=== PATIENT | female | born 1955 | race Caucasian/White ===

== ENCOUNTER 2021-12-08 13:46 | Outpatient (RCR) | payer MEDICARE, SELFPAY ==
--- NOTE | 2021-12-08 15:17 | PT.OPEX ---
PT [place] Outpatient Eval PT [facility] Outpatient Eval Start: 12/08/21 12:40 Freq: Status: Active Protocol: Document 12/08/21 12:40 ENM (Rec: 12/08/21 15:07 ENM [id number]) E-signed By Shahnaz Dale DPT Physical Therapy Outpatient Evaluation Insurance Information Recert Due Date 03/02/22 Insurance Name Medicare B Medical Diagnosis trochanteric bursitis right hip Treating Diagnosis right hip pain, impaired gait, decreased right hip strength Referring MD Farrell Subjective Subjective Patient presents to PT for complaint of right hip pain after a fall. Patient states that the fall was really bad about 5 weeks ago. After the fall there was a large amount of swelling and bruising on the side of the hip. Since then pains have steadily improved but has not gone away . Sitting is the worse right now but then after 2-3 steps the pain improves. The front of the hip and the back of the hip are the most painful. Does have a history of ganglion cyst and numbness of the left foot which causes her to be unsteady. She is on an anti-inflammatory for the foot and has a follow up next week . She has not been able to do her walking due to the hip and instead has been using a recumbent bike. She has been doing some stretching that has helped some. Denies any numbness and tingling. Patient cleans houses for a job and bending to do her work used to be painful but that is better now. PMHx: right total hip replacement, B knee replacements, previous achilles tendon tear Imaging: Xray An AP pelvis and cross-table lateral view of the right hip do not show an obvious fracture of the greater trochanter or femur. There is no obvious pelvic ring fracture.. Pain Comments at its best: 2/10 at its worse: 8-9/10 with initially sitting and getting to standing easing: ibuprofen aggravating: sitting, starting to walk Occupation cleaning Objective Other/Pertinent Objective ROM: AROM hip flexion L 95 R 95 with pain on R, pain with PROM flexion hip IR L 21 R 21 hip ER L 28 R 30 Lumbar FF no pain WNL ext no pain WNL SB no pain WNL strength: hip flexors L 4/5 R 3+/5 with pain on R knee extensors L 4/5 R 4-/5 with pain on R hip IR 4/5 B hip ER L 4/5 R 4-/5 with slight pain no reproduction of pain with S /L resisted hip extension or knee flexion palpation/joint mobility: + for pain with palpation to proximal HS at IT and distal medial glute max. No pains with palpation of greater trochanter bursa gait/ambulation: R trunk lean, R hip drop with ambulation. Initial antalgic gait pattern with first 3-4 steps that improves with progressive distance SLS standing on L contralateral hip drop and hip adduction, able to hold 15s bilaterally special tests: SLR - 90/90 HS length slight pain reproduction on R piriformis below 90 just stretch, piriformis above 90 deg slight pain - ER derotation test - for improvement of pain with SIJ compression Functional Test Performed & Score LEFS: 54/64 Assessment Assessment/Impression Patient is a 66 year old female presenting with right hip pain after a fall 5 weeks ago. Their primary complaint is of pain in the back of the hip with sitting and with starting to walk. Pains are not as significant anymore but still limit sit to stand transfers as well as ambulation. Patient was very active with walking prior to injury which has now been limited due to pain. Upon assessment patients concordant pains brought on with hip flexion active and passive, hamstring stretch, first ambulation steps from sitting and palpation of proximal HS at IT/medial glute . Special testing - for SLR, hip ER derotation and SLS. Noted contralateral hip drop with stance on LLE and right trunk lean with ambulation. Some improvement of pain during first steps with cues for glute engagement. Global hip weakness noted with MMT, most significant for hip flexion and knee extension. Symptoms consistent with proximal hamstring strain. Patient would greatly benefit from skilled PT to address impairments stated above in order to be able to perform all functional and recreational walking as well as work duties without significant discomfort or difficulty. Primary Functional Limitations sitting, first steps after sitting Plan of Care Rehabilitation Potential Good Physical Therapy Goals In 5-6 visits: 1. Patient will be IND with HEP and self management of symptoms 2. Patient will be able to sit for > 1 hour without posterior hip pain to demonstrate improvements in sitting tolerance for longer car rides 3. Patient will be able to stand up from sitting and begin ambulation without difficulty for improved ease of transfers 4. Patient will be able to return to prior walking routine with less than 2/10 hip pain to progress toward PLOF Coordination/Communication With Referral Source Treatment Plan/Direct Interventions Gait Training,Ice/Cold/ Vasopneumatic,Joint Mobilization,Manual Therapy, Neuromuscular Re-ed,Self-Care/ Home Management,Therapeutic Activities,Therapeutic Exercises Frequency/Duration 1x a week for 5-6 visits Patient Will Be Discharged From Therapy Completion of LTG(s), Independent w/HEP Evaluation Billing Untimed Code Treatment Minutes 34 Complexity Low Certification Information Initial Certification Date 12/08/21 Ending Certification Date 03/02/22 Provider Signature Shows Agreement With POC & Medical Necessity Physician Signature & Date Requested Please Sign/Date Here Physician Comment/Change : Physician NPI Number #
== END 2022-03-12 14:55 | disposition home or self-care (01) ==
PROVIDERS: PCP Family Medicine; Visit Provider Orthopaedic Surgery
DX: M25.551 Pain in right hip (principal); M70.61 Trochanteric bursitis, right hip; R26.9 Unspecified abnormalities of gait and mobility; Z51.89 Encounter for other specified aftercare
CPT/HCPCS: 97110; 97161

== ENCOUNTER 2024-03-19 04:43 | Emergency (ER) | payer MEDICARE, SELFPAY ==
[2024-03-19 04:45] VITALS: BP 132/77; PULSE 83; RESP 16; TEMP 36.4; O2SAT 97; BMI 27.3
--- OUTSIDE RECORDS SUMMARY | 2024-03-19 04:46 | XMS_ITS | Clinical Summary ---
Author Organization [facility] Address [place], [place] [address] Care Team Providers Care Recovery Coordinator Name Role Phone Rachael Antunez DO Primary Care Provider Allergies Active Allergy Reactions Criticality Noted Date Comments Morphine Itching 05/30/2009 Hydrocodone-Acetaminophen Itching 02/04/2014 Medications cholecalciferol (VITAMIN D) 1,000 unit tablet Take 1 tablet by mouth once daily. 0 4 Active vitamin-folic acid 1 mg ( VITAMIN) tablet/capsule Take 1 tablet by mouth once daily. 0 4 Active amoxicillin (AMOXIL) 500 mg tablet TAKE ALL FOUR TABLETS BY MOUTH ONE HOUR PRIOR TO DENTAL APPOINTMENT 3 9 Active calcium carbonate-vitam in D3, 600 mg-400 unit, 600 mg(1,500mg) -400 unit tablet Take 1 tablet by mouth 2 times daily with meals. 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 016 Neuralgia of left peroneal nerve 12/20/2014 Osteoarthritis of carpometacarpal joints of both thumbs 01/19/2013 Elevated BP without diagnosis of hypertension Resolved Problems Problem Noted Date Diagnosed Date Resolved Date Anticoagulated on warfarin 07/31/2012 0 08/27/2012 Obesity (BMI 30-39.9) 08/09/20112013 Endometrial cancer 05/07/2011 0 longterm (current) use of anticoagulants 06/09/2009 05/07/2011 Overview (06/23/2009): INR Goal Range: 1.8 - 2.5 Dysmetabolic syndrome X 03/31/200705/16 Overview (03/31/2007): waist, HDL and borderline BP Last Lipids: Chol: 180 03/27/2007 T 03/27/2007 HDL: 47 03/27/2007 LDL: 109 03/27/2007 Last BP Readings: Date: BP: 03/27/2007 122/82 Symptomatic menopausal or fe male climacteric states 03/27/2007 06/08/2009 Other joint derangement, not elsewhere classified, lower leg 03/24/2007 06/08/2009 Overview (03/24/2007): right gives out Total Knee, right 07/15/2000 06/08/2009 Overview (03/27/2007): needs Prophylaxis first 2 years, optional after that Loose body in knee 09/14/1986 0 Overview (03/24/2007): left Special screening for osteoporosis 06/08/2009 Overview (03/27/2007): MOm has osteoporosis at age 77 tallest 68.75 Other screening mammogram Overview (03/27/2007): 10/08/[address] density 03/27/2007 to schedule Screening for lipoid disorders 06/08/2009 Overview (03/31/2007): Last Lipids: Chol: 143 01/21/2004 T 01/21/2004 HDL: 41 01/21/2004 LDL: 88 01/21/2004 Last Lipids: Chol: 180 03/27/2007 T 03/27/2007 HDL: 47 03/27/2007 LDL: 109 03/27/2007 Routine gynecological examination 06/08/2009 Overview (03/27/2007): 03/27/2007 Screening for diabetes mellitus 06/08/2009 Overview (03/27/2007): Family History: Mom, diet controled Largest baby 7#rob 03/27/2007 FBS none Screening for malignant neop lasm of the cervix 06/08/2009 Overview (03/27/2007): 02/26/00 ASCUS, favor reactive, several normals since 01/21/04 normal 03/27/2007 Special screening for malign ant neoplasms, colon 06/08/2009 Overview (03/27/2007): no family history. 03/27/2007 discussed screening options Screening for thyroid disorder 06/08/2009 Overview (03/27/2007): TSH (uIU/mL) Date Value 08/08/2002 1.67 Encounters Date Type Department Care Team Description 03/09/[address] [address] Rachael Antunez DO Letter (Patient wondering if she can use weight loss injections.) 02/29/[address] [address] Rachael Antunez, Form 01/30/2024 7:45 AM DIRECTOR OF PUPIL PERSONNEL PROGRAM Office Visit [facility] [address] [place] [address] aRchael Antunez DO Medicare ANNUAL (subsequent) Visit (68 yr/) 01/30/2024 Travel 01/25/2024 Travel 01/23/2024 7:20 AM DIRECTOR OF PUPIL PERSONNEL PROGRAM Ancillary Procedure [facility] [address] [place] [address] 01/23/2024 Travel 01/20/2024 Travel 01/17/2024 2:15 PM DIRECTOR OF PUPIL PERSONNEL PROGRAM Office Visit [facility] [address] [place] [address] Yousif Lamar DPM Follow Up (Left foot pain, review EMG results ) 01/17/2024 Travel 01/10/2024 10:30 AM DIRECTOR OF PUPIL PERSONNEL PROGRAM Office Visit [facility] [address] [place] [address] Harsha Plascencia, Testing (EMG left lower extremity) 01/10/2024 Travel 01/05/2024 Travel from Last 3 Months Immunizations Name Administration Dates Next Due COVID-19 vaccine (Denise-J& J) PF, MDV 04/25/2020 HepA-HepB (Twinrix) 05/08/2012,12/06/2011,2011 Influenza Virus, Unspecified 12/15/2017 Influenza, High-dose Inactivated 12/28/2023,11/15 Influenza, High-dose Quadriv alent Inactivated 12/29/2022,12/19/2021,12/22/2020,2019 Influenza, IIV3 (Age >=3 years) 02/24/2012,11/22 Influenza, IIV4 11/15/2016, 6,12/20/2014,2013 Pneumococcal Conj 20-valent (Prevnar 20) 01/25/2022 Pneumococcal conj 13-Valent (Prevnar 13) 01/08/2019 Pneumococcal, Unspecified 12/15/2017 Td (Age >=7 Years) 02/26/2000,06/10/1989 Tdap 10/21/2021,08/09/2011 Zoster (Shingrix-RZV, recombinant) 09/12,09/12/2018,05/03/2018,2018 Zoster (Zostavax-ZVL, live) 12/20/2014 Family History Medical History Relation Name Comments Good Health Brother Herman Other Brother Herman smoker Asthma Father Hypertension Father Other Father Emphysema/Menie re's disease Diabetes Maternal Aunt Chichi Arthritis Maternal Grandfather rheumat ism Other Maternal Grandfather Diabetes Maternal Grandmother diet co ntrolled Arthritis Mother bilateral knee replascements Asthma Mother Cancer Mother Lung Diabetes Mother No treatment at this time Heart Disease Mother CHF-Hyperchole sterolemia, stents at 79 Hypertension Mother Osteoporosis Mother Other Mother Irregular heart beat/Emphysema Stroke Mother At the time of bilat. total knee replacements at age 76 Thyroid Disease Mother Other Paternal Grandmother Gangren e Other Sister 1 Zahira Shogren's syndr ome Good Health Sister 2 Gladys Good Health Son 1 Alvarez Other Son 2 Andrey Golden Jim sy ndrome, no porblems since out grew tongue issues Cancer-breast No Family History Cancer-colon No Family History Cancer-ovarian No Family History Relation Name Status Comments Brother Herman Alive Father Alive b 1922 Maternal Aunt Chichi Alive Maternal Grandfather (Age 97) ol d age Maternal Grandmother (Age 95) ol d age Mother Alive b 192 Paternal Grandfather (Age 84) o ld age Paternal Grandmother unknown Sister 1 Zahira Alive Sister 2 Gladys Alive Son 1 Alvarez Alive b 1975 Son 2 Andrey Alive b 1979 Social History Tobacco Use Types Packs/Day Years Used Date Smoking Tobacco: Never Smokeless Tobacco: Never Tobacco Cessation:Counseling Given: Yes Comments:passive as a kid Alcohol Use Standard Drinks/Week Comments No 0 (1 standard drink = 0.6 oz pur e alcohol) PHQ-2 Answer Date Recorded PHQ-2 TOTAL SCORE 0 01/30/2024 Social Connections Answer Date Recorded Do you often feel lonely or isolated from those around you? 0 01/28/2023 Financial Resource Strain Answer Date R ecorded Difficulty of Paying Living Expenses 3 01/28/2023 Difficulty of Paying Living Expenses Not on file 01/28/2023 Food Insecurity Answer Date Recorded Do you worry your food will run out before you are able to buy more? 1 01/28/2023 Transportation Needs Answer Date Record ed Does lack of transportation keep you from medica l appointments? 1 01/28/2023 Does lack of transportation keep you from work, meetings or getting things that you need? 1 01/28/2023 Housing Stability Answer Date Recorded What is your housing situation today? 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 Not on file Not on file Not on file Obstetrics History Para Term AB IAB SAB Ectopic Multiple Livin g Live Births 6 2 2 1 1 2 3 Date Outcome GA Total Labor Labor/2nd/3rd Weight Sex Type Anes PTL Yudelka A1 A5 Name Clin SAB Term Term 04/05 40w 0d M Vag Living Alvarez 05/19 12w 0d SPONTAN EOUS Deceas ed 01/03 40w 0d M Vag Living Andrey Last Filed Vital Signs Vital Sign Reading Time Taken Comments Blood Pressure 150/80 01/30/2024 7:48 AM DIRECTOR OF PUPIL PERSONNEL PROGRAM Pulse 55 01/30/2024 7:48 AM DIRECTOR OF PUPIL PERSONNEL PROGRAM Temperature 36.4 C (97.6 F) 01/30/2024 7:48 AM DIRECTOR OF PUPIL PERSONNEL PROGRAM Respiratory Rate 16 09/18/2015 7:08 AM CDT Oxygen Saturation 97% 01/30/2024 7:48 AM DIRECTOR OF PUPIL PERSONNEL PROGRAM Inhaled Oxygen Concentration - - Weight 85 kg (187 lb 6.4 oz) 01/30/2024 7:48 AM DIRECTOR OF PUPIL PERSONNEL PROGRAM Height 173.4 cm (5' 8.27) 01/30/2024 7:48 AM CS T Body Mass Index 28.27 01/30/2024 7:48 AM DIRECTOR OF PUPIL PERSONNEL PROGRAM Plan of Treatment Health Maintenance Due Date Last Done Comments Mammogram for age 45-75 01/22/2025 01/23/20 24, 01/20/2023, 01/14/2022, Additional history exists BMI (ht and wt on same day) for age 18+ 01/29/2025 01/30/2024, 01/28/2023, 01/25/2022, Additional history exists COVID-19 vaccine series ( season) 2025 01/26/2023, 01/13/2022, 05/27/2021, Additional history exists Postponed from 10/16/2023 (Patient discretion) Depression screening for age 12+ 01/29/2025 01/30/2024, 01/30/2023, 01/28/2023, Additional history exists Medicare Wellness for age 65+ 01/30/2025 01/30/2024, 01/28/2023, 01/25/2022, Additional history exists Fecal testing sDNA-FIT (Cologuard) for age 45-75 07/19/2026 07/20/2023 RSV vaccine for adults or (1 - 1-dose 75+ series) 2028 Lipids for age 45-75 01/29/2029 01/30/2024, 01/20/2023, 01/29/2022, Additional history exists Tetanus booster 10/22/2031 10/21/2021, 07/16, 02/26/2000, Additional history exists Hepatitis C screening for age 18-79 Completed 01/06/2015 Zoster (shingles) series for age 50+ Completed 09/12/2018, 09/12/2018, 05/03/2018, Additional history exists DEXA/DXA scan for age 65+ Completed 01/07/2020, Tdap Completed 10/21/2021, 08/09/2011 Pneumococcal series for age 50+ Completed 01/25/2022, 01/08/2019, 12/15/2017 Influenza for age 65+ Completed 12/28/2023 , 12/29/2022, 12/19/2021, Additional history exists Medical Devices Implanted Type Area Slack Cooper Device Identifier Shelf Expiration Date Model / Serial / Lot Bone Cement Implanted:Qty: 2 on 09/15/2015 by Aguila Hernandez MD at [facility] Right: Knee [employer] 01/14/2018 / / [id number] Stem Ext Implanted:Qty: 1 on 09/15/2015 by Aguila Hernandez MD at [facility] Right: Knee [employer] 01/14/2019 / / [id number] Tibial Tray Implanted:Qty: 1 on 09/15/2015 by Aguila Hernandez MD at [facility] Right: Knee [employer] 11/15/2019 / / [id number] Patella Implanted:Qty: 1 on 09/15/2015 by Aguila Hernandez MD at [facility] Right: Knee [employer] 06/14/2020 / / [id number] Bone Cement Implanted:Qty: 2 on 09/15/2015 by Aguila Hernandez MD at [facility] Right: Knee [employer] 08/14/2017 / / [id number] Tibial Insert Implanted:Qty: 1 on 09/15/2015 by Aguila Hernandez MD at [facility] Right: Knee [employer] 08/15/2019 / / [id number] Femoral Aug. Block & Screw Implanted:Qty: 1 on 09/15/2015 by Aguila Hernandez MD at [facility] Right: Knee [employer] 05/15/2016 / / [id number] Stem Ext Implanted:Qty: 1 on 09/15/2015 by Aguila Hernandez MD at [facility] Right: Knee [employer] 07/15/2020 / / [id number] Femoral Component Implanted:Qty: 1 on 09/15/2015 by Aguila Hernandez MD at [facility] Right: Knee [employer] 12/16/2015 / / [id number] Stem Ext Implanted:Qty: 1 on 09/15/2015 by Aguila Hernandez MD at [facility] Right: Knee [employer] 08/14/2018 / / [id number] Femoral Aug Block & Screw Implanted:Qty: 1 on 09/15/2015 by Aguila Hernandez MD at [facility] Right: Knee [employer] 11/14/2018 / / [id number] Fem Aug Block & Screw Implanted:Qty: 1 on 09/15/2015 by Aguila Hernandez MD at [facility] Right: Knee [employer] 04/14/2020 / / [id number] Procedures Procedure Name Priority Date/Time Associated Diagnosis Comments LIPID PANEL W REFLEX MEASURED LDL Routine 01/30/2024 8:47 AM DIRECTOR OF PUPIL PERSONNEL PROGRAM Screening cholesterol level BASIC METABOLIC PANEL Routine 01/30/2024 8:47 AM DIRECTOR OF PUPIL PERSONNEL PROGRAM Screening for diabetes mellitus Hyperkalemia XR MAMMO ALESSIO BILAT SCREEN Routine 01/23/2024 7:37 AM DIRECTOR OF PUPIL PERSONNEL PROGRAM Visit for screening mammogram EMG Routine 01/10/2024 10:26 AM DIRECTOR OF PUPIL PERSONNEL PROGRAM Numbness of left foot SDNA-FIT EXTERNAL (COLOGUARD) Routine 07/20/2023 7:10 AM CDT Screening for colon cancer XR DXA BONE DENSITY 2 SITES AXIAL Routine 01/07/2020 10:49 AM DIRECTOR OF PUPIL PERSONNEL PROGRAM Menopause ANTI HCV Routine 01/06/2015 10:28 AM DIRECTOR OF PUPIL PERSONNEL PROGRAM Need for hepatitis C screening test from Last 3 Months or Most Recently Relevant to Health Maintenance Results * (ABNORMAL) LIPID PANEL W REFLEX MEASURED LDL (01/30/2024 8:47 AM DIRECTOR OF PUPIL PERSONNEL PROGRAM) Pathologist [facility] CHOLESTEROL, TOTAL 210(H) <200 mg/dL [facility] HDL CHOLESTEROL 66 > OR = 50 mg/dL [facility] TRIGLYCERIDES 78 <150 mg/dL [facility] LDL-CHOLESTEROL 127(H) mg/dL (calc) [facility] Comment: Reference range: <100 Desirable range <100 mg/dL for primary prevention; <70 mg/dL for patients with CHD or diabetic patients with > or = 2 CHD risk factors. LDL-C is now calculated using the Serjio-Asa calculation, which is a validated novel method providing better accuracy than the Friedewald equation in the estimation of LDL-C. Serjio SS et al. BRUNA. 2013;310(19): 3017-5429 (http://education.Nexess/faq/JZT404) CHOL/HDLC RATIO 3.2 <5.0 (calc) [facility] NON HDL CHOLESTEROL 144(H) <130 mg/dL (calc) [facility] Comment: For patients with diabetes plus 1 major ASCVD risk factor, treating to a non-HDL-C goal of <100 mg/dL (LDL-C of <70 mg/dL) is considered a therapeutic option. Blood BLOOD SPECIMEN / Unknown 01/30/2024 8:47 AM DIRECTOR OF PUPIL PERSONNEL PROGRAM 01/30/2024 8:48 AM DIRECTOR OF PUPIL PERSONNEL PROGRAM us Rachael Nealt DO CHEMISTRY Final Resul t [facility] [address] [place] [address], [facility] [address] [place] [address] * BASIC METABOLIC PANEL (01/30/2024 8:47 AM DIRECTOR OF PUPIL PERSONNEL PROGRAM) [facility] GLUCOSE 89 65 - 99 mg/dL [facility] Comment: Fasting reference interval UREA NITROGEN (BUN) 17 7 - 25 mg/dL [facility] CREATININE 0.68 0.60 - 1.00 mg/dL [facility] EGFR 94 > OR = 60 mL/min/1. 73m2 [facility] BUN/CREATININE RATIO SEE NOTE: 6 - 22 (calc) [facility] Comment: Not Reported: BUN and Creatinine are within reference range. SODIUM 140 135 - 146 mmol/L [facility] POTASSIUM 4.3 3.5 - 5.3 mmol/L [facility] CHLORIDE 105 98 - 110 mmol/L [facility] CARBON DIOXIDE 26 20 - 32 mmol/L [facility] ELECTROLYTE BALANCE 9 7 - 17 mmol/L (calc) [facility] CALCIUM 9.3 8.6 - 10.4 mg/dL [facility] Blood BLOOD SPECIMEN / Unknown 01/30/2024 8:47 AM DIRECTOR OF PUPIL PERSONNEL PROGRAM 01/30/2024 8:48 AM DIRECTOR OF PUPIL PERSONNEL PROGRAM us Rachael Nealt DO CHEMISTRY Final Resul t [facility] [address] [place] [address], [place] [phone] [facility] [address] [place] [address] * XR MAMMO ALESSIO BILAT SCREEN (01/23/2024 7:37 AM DIRECTOR OF PUPIL PERSONNEL PROGRAM) Anatomical Region Laterality Modality BREASTS, Breast Left, Breast Right Bilateral Mammography Impressions 01/23/2024 2:16 PM DIRECTOR OF PUPIL PERSONNEL PROGRAM There is no radiographic evidence for malignancy. Recommend annual mammograms. MAMMOGRAM ASSESSMENT: ACR 1 Negative PATIENTS: You will also receive a letter with your examination results in an easy to read format. If you have questions about your results, please contact your referring provider. Narrative 01/23/2024 2:16 PM DIRECTOR OF PUPIL PERSONNEL PROGRAM For Patients: As a result of the Cures Act, medical imaging exams and procedure reports are released immediately into your electronic medical record. You may view this report before your referring provider. If you have questions, please contact your health care provider. XR MAMMO ALESSIO BILAT SCREEN [[id number]] CLINICAL HISTORY: This is an asymptomatic 68 y.o. patient. INDICATION FOR EXAM: Mammogram Screening. TECHNIQUE: CC & MLO views were obtained. This study was evaluated with the assistance of Computer-Aided Detection. Breast Tomosynthesis was used in interpretation. COMPARISON FILM: Yes 01/20/23 [facility] 01/14/22 [facility] FINDINGS: There are scattered areas of fibroglandular density. There are no dominant masses, suspicious micro calcifications or areas of architectural distortion. Rachael Nealt DO MAMMO Final Resul t * EMG (01/10/2024 10:26 AM DIRECTOR OF PUPIL PERSONNEL PROGRAM) Yousif Lamar DPM NEUROLOGY ORD Final Res ult * SDNA-FIT EXTERNAL (COLOGUARD) (07/20/2023 7:10 AM CDT) NONINV COLON CA DNA+OCC BLD SCRN STL-IMP Negative Negative 08/04/2023 4:49 PM CDT [facility] (CLIA #:[id number]) Comment: NEGATIVE TEST RESULT. A negative Cologuard result indicates a low likelihood that a colorectal cancer (CRC) or advanced adenoma (adenomatous polyps with more advanced pre-malignant features) is present. The chance that a person with a negative Cologuard test has a colorectal cancer is less than 1 in 1500 (negative predictive value >99.9%) or has an advanced adenoma is less than 5.3% (negative predictive value 94.7%). These data are based on a prospective cross-sectional study of 10,000 individuals at average risk for colorectal cancer who were screened with both Cologuard and colonoscopy. (Christin Sandy al, N Engl J Med 2014;370(14):6511-6091) The normal value (reference range) for this assay is negative. COLOGUARD RE-SCREENING RECOMMENDATION: Periodic colorectal cancer screening is an important part of preventive healthcare for asymptomatic individuals at average risk for colorectal cancer. Following a negative Cologuard result, the [place] Cancer Society and U.S. Multi-Society Task Force screening guidelines recommend a Cologuard re-screening interval of 3 years. References: [place] [employer] Society Guideline for Colorectal Cancer Screening: https://www.cancer.org/cancer/etxcu-oudkof-dgkxpa/luaxkjasc-rbwlfuvyw-vyljhui/ac s-rec ommendations.html.; Berry GREENE, Nam BEST, Riley GómezK, Colorectal Cancer Screening: Recommendations for Physicians and Patients from the U.S. Multi-Society Task Force on Colorectal Cancer Screening , Am J Gastroenterology 2017; 112:4806-6623. TEST DESCRIPTION: Composite algorithmic analysis of stool DNA-biomarkers with hemoglobin immunoassay. Quantitative values of individual biomarkers are not reportable and are not associated with individual biomarker result reference ranges. Cologuard is intended for colorectal cancer screening of adults of either sex, 45 years or older, who are at average-risk for colorectal cancer (CRC). Cologuard has been approved for use by the U.S. FDA. The performance of Cologuard was established in a cross sectional study of average-risk adults aged 50-84. Cologuard performance in patients ages 45 to 49 years was estimated by sub-group analysis of near-age groups. Colonoscopies performed for a positive result may find as the most clinically significant lesion: colorectal cancer [4.0%], advanced adenoma (including sessile serrated polyps greater than or equal to 1cm diameter) [20%] or non- advanced adenoma [31%]; or no colorectal neoplasia [45%]. These estimates are derived from a prospective cross-sectional screening study of 10,000 individuals at average risk for colorectal cancer who were screened with both Cologuard and colonoscopy. (Christin Burks, N Engl J Med 2014;370(14):6596-8164.) Cologuard may produce a false negative or false positive result (no colorectal cancer or precancerous polyp present at colonoscopy follow up). A negative Cologuard test result does not guarantee the absence of CRC or advanced adenoma (pre-cancer). The current Cologuard screening interval is every 3 years. ([place] Cancer Society and U.S. Multi-Society Task Force). Cologuard performance data in a 10,000 patient pivotal study using colonoscopy as the reference method can be accessed at the following location: www.Noquo/results. Additional description of the Cologuard test process, warnings and precautions can be found at www.cologuard.com. Stool specimen (specimen) (Rectum) 07/20/2023 7:10 AM CDT 07/21/2023 1:29 PM CDT Rachael Nealt DO URINE Final Resul t [facility] (CLIA #:[id number]) [address] [place] [place] [address], * XR DXA BONE DENSITY 2 SITES AXIAL [[id number]] (01/07/2020 10:49 AM DIRECTOR OF PUPIL PERSONNEL PROGRAM) Anatomical Region Laterality Modality Spine, HIPS, HIPL, HIPR Other Narrative 01/22/2020 4:37 PM DIRECTOR OF PUPIL PERSONNEL PROGRAM Please see scanned document for results of this study. Rachael Nealt DO DEXA Final Resul t * ANTI HCV [[id number]] (01/06/2015 10:28 AM DIRECTOR OF PUPIL PERSONNEL PROGRAM) HEPATITIS C ANTIBODY Non-Reacti ve Non-Reacti ve 01/06/2015 4:50 PM DIRECTOR OF PUPIL PERSONNEL PROGRAM [facility] Blood specimen (specimen) BLOOD SPECIMEN / Unknown Venipuncture / Unknown 01/06/2015 10:28 AM DIRECTOR OF PUPIL PERSONNEL PROGRAM 01/06/2015 10:28 AM DIRECTOR OF PUPIL PERSONNEL PROGRAM Narrative [facility] - 01/06/2015 4:50 PM DIRECTOR OF PUPIL PERSONNEL PROGRAM Antibodies to HCV not detected; does not exclude the possibility of exposure to HCV. us Rachael Eva Antunez DO SEND OUTS Final Resul t [facility] [address] [place] [address], [place] from Last 3 Months or Most Recently Relevant to Health Maintenance Insurance [facility] OF NON-MI-ITS BLUE CROSS MEDICARE ADVANTAGE Advance Directives * Full Code (Latest Code Status on File) Date Activated Date Inactivated Comments 09/15/2015 2:35 PM 09/18/2015 3:43 PM * Full Code Date Activated Date Inactivated Comments 09/15/2015 9:39 AM 09/15/2015 2:35 PM * Full Code Date Activated Date Inactivated Comments 05/07/2011 5:59 PM 05/09/2011 1:08 AM * Full Code Date Activated Date Inactivated Comments 05/07/2011 11:24 AM 05/07/2011 5:59 PM Care Teams Recovery Coordinator Relationship Specialty Start Date End Date Rachael Antunez DO [address] [place] [address] PCP - General Family Practice 10/15/11
--- OUTSIDE RECORDS SUMMARY | 2024-03-19 04:46 | XMS_ITS | Data Portability ---
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 Patient is low moderate maximum complexity with 1 personal factors / comorbidities affecting the plan of care, stable clinical presentation. Examination determines affected structures, participation restrictions and/or functional limitations. The patient will benefit from PT to decrease pain and increase function. Contributing factors include muscle guarding, oral habits, stress and poor posture. Treatment will include exercises to release muscle tension and increase strength and stability. Habit monitoring and repeated reminding techniques will be utilized to eliminate habitual clenching. 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 Client to demonstrate independence in maintaining precautions to prevent TMJ pain Client to present with at least 75% less crepitis Client to open jaw to at least 40 mm without pain, deviation or crepitis Client to have pain-free chewing with moderately hard diet 75% of the time Client to report pain level is reduced at least 75% as evidenced by functional limitation scale PLAN: Client is to be seen 1-2x/week for 4-8 weeks for instruction in jaw and neck exercises, postural exercises and body mechanics instructions, including better sleeping position, self-soft tissue mobilization avoidance of precipitating parafunctional activities. csather Not available 01/09/2019 19:16:50 01/17/2019 01/17/2019 She has mild lef t jaw soreness when chewing granola bar; pressure to SCM relieves aching in left jaw immediately. Improvement in eating, jaw opening and neck flexibility seen. Improvements from initriakl session are holding for the most part. Short term goals; 3 weeks Client to be able to bite down with 50% less pain than at evaluation Client to improve cervical ROM to Within Normal Limits Improve patient awareness of muscle guarding habits to decrease pain by 50% jail goals-6 weeks Client to demonstrate independence in maintaining precautions to prevent TMJ pain Client to present with at least 75% less crepitis Client to open jaw to at least 40 mm without pain, deviation or crepitis Client to have pain-free chewing with moderately hard diet 75% of the time Client to report pain level is reduced at least 75% as evidenced by functional limitation scale PLAN: Client is to be seen 1-2x/week for 4-8 weeks for instruction in jaw and neck exercises, postural exercises and body mechanics instructions, including better sleeping position, self-soft tissue mobilization avoidance of precipitating parafunctional activities. csather Not available 01/17/2019 14:47:26 01/25/2019 01/25/2019 Improvements fro m initial session are holding, jaw motion improves, sidewards motion improving, neck is improving she notes, along with head now straighter. for the most part. Short term goals; 3 weeks Client to be able to bite down with 50% less pain than at evaluation Client to improve cervical ROM to Within Normal Limits Improve patient awareness of muscle guarding habits to decrease pain by 50% jail goals-6 weeks Client to demonstrate independence in maintaining precautions to prevent TMJ pain Client to present with at least 75% less crepitis Client to open jaw to at least 40 mm without pain, deviation or crepitis Client to have pain-free chewing with moderately hard diet 75% of the time Client to report pain level is reduced at least 75% as evidenced by functional limitation scale PLAN: Client is to be seen 1-2x/week for 4-8 weeks for instruction in jaw and neck exercises, postural exercises and body mechanics instructions, including better sleeping position, self-soft tissue mobilization avoidance of precipitating parafunctional activities. csather Not available 01/25/2019 15:20:35 02/15/2019 02/15/2019 Today I reviewed the pathophysiology of this disorder, potential contributing factors and treatment options with the patient. Diagnosis and treatment options were reviewed at today's appointment. I am continuing to recommend self-care and jaw exercises at this time. I also recommended isometric exercise focusing on improving pain in the left deep masseter area. The focus of care will be continued, gradual rehabilitation and pain management. Follow-up was recommended on an as needed basis. I spent 20 minutes with the patient, >50% of which was spent counseling and coordinating care. [email or web address] Not available 02/15/2019 15:40:00 02/15/2019 02/15/2019 Improvements fro m initial session are holding, jaw motion improves, sidewards motion improving but don't move laterally more than necessary, neck is improving she notes, along with head now straighter. for the most part. 95% better eating. Slightest clicking on closing, abolished with SCM STM left. Short term goals; 3 weeks Client to be able to bite down with 50% less pain than at evaluation Client to improve cervical ROM to Within Normal Limits Improve patient awareness of muscle guarding habits to decrease pain by 50% jail goals-6 weeks Client to demonstrate independence in maintaining precautions to prevent TMJ pain Client to present with at least 75% less crepitis Client to open jaw to at least 40 mm without pain, deviation or crepitis Client to have pain-free chewing with moderately hard diet 75% of the time Client to report pain level is reduced at least 75% as evidenced by functional limitation scale PLAN: Client is to be seen PRN csather Not available 02/15/2019 15:04:12 Plan of Treatment Reminders Order Date Submit Date Provider Last Modified By Organization Details Last Modified Time Details Appointments None record ed. Lab None record ed. Referral None record ed. Procedures None record ed. Surgeries None record ed. Imaging None record ed. Medication Orders None record ed. Patient Targets Encounter Date Encounter Id Patient Goals Patient Target Last Modified By Organization Details Last Modified Time move jaw easier csather Not available 01/09/2019 19:16:59 move jaw easier csather Not available 01/17/2019 13:34:17 move jaw easier csather Not available 01/25/2019 14:46:59 move jaw easier csather Not available 02/15/2019 14:36:05 Patient Instructions Encounter Date Encounter Id Patient Instructions Last Modified By Organization Details Last Modified Time 01/09/2019 [id number] Plan: Medicare requires a inspection clerk or SENIOR ACCOUNTING ASSOCIATE to authorize our plan of care. If you agree with the plan as outlined above, please sign, date and fax back to [phone]. Thank you. Primary MD signature: Date: csather Not available 01/09/2019 15:07:50 01/17/2019 [id number] Plan: Medicare requires a inspection clerk or SENIOR ACCOUNTING ASSOCIATE to authorize our plan of care. If you agree with the plan as outlined above, please sign, date and fax back to [phone]. Thank you. Primary MD signature: Date: csather Not available 01/17/2019 13:34:17 01/25/2019 [id number] Plan: Medicare requires a inspection clerk or SENIOR ACCOUNTING ASSOCIATE to authorize our plan of care. If you agree with the plan as outlined above, please sign, date and fax back to [phone]. Thank you. Primary MD signature: Date: csather Not available 01/25/2019 14:46:59 02/15/2019 [id number] Plan: Medicare requires a inspection clerk or SENIOR ACCOUNTING ASSOCIATE to authorize our plan of care. If you agree with the plan as outlined above, please sign, date and fax back to [phone]. Thank you. Primary MD signature: Date: csather Not available 02/15/2019 14:36:05 Reason for Referral None Reported. 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 Procedures Surgical History Date Name Laterality Status Provider Name and Address Organization Details Recorded Time 02/15/19 20 39901: Therapeutic Exercise [facility] 02/15/2019 14:36:05 01/26/20 53753: Therapeutic Exercise completed [facility] 01/25/2019 14:46:59 01/18/20 01827: Therapeutic Exercise completed [facility] 01/17/2019 13:34:16 01/10/20 19 47854 PT Eval - Low Complexity completed [facility] 01/09/2019 19:17:23 01/10/20 19 42736: Therapeutic Exercise completed [facility] 01/09/2019 15:07:51 01/10/20 19 08571: Manual Therapy completed Jas [facility] 01/09/2019 19:17:56 Knee arthroscopy/surg krystal completed Ricardorich ChurchillPotts [facility] 02/23/2018 10:59:11 Hip arthroscopy dx completed Ricardo Potts [facility] 02/23/2018 10:59:21 Hysterectomy completed Ricardorich Potts [facility] 02/23/2018 10:59:33 Imaging Results None recorded. Procedure Notes None recorded. Medical Equipment None Reported. Allergies Allergen ID Allergen Name Allergen Category Reaction Reaction Severity Criticality Documentation Date Start Date Code Code System Note Provider Name and Address Organization Details Recorded Time 96164 morphine medicatio n Not available Not available Not available 02/23/2018 7052 RxNorm Ricardo sanchez [facility] 9 10:55:04 Medications Name Sig Start Date Stop Date Status Note LastModified by Organization Details LastModified Time amoxicillin 500 mg tablet 12/28 completed Not Available Not Available Not Available cephalexin 500 mg capsule 02/23 completed Not Available Not Available Not Available cyclobenzapr ine 5 mg tablet Take 1 tablet every day by oral route at bedtime for 21 days. 02/15 completed Not Available Not Available Not Available Shingrix (PF) 50 mcg/0.5 mL intramuscula r suspension, kit 02/15 completed Not Available Not Available Not Available Vitals Date Recorded Body height Provider Name an d Address Organization Details Last Updated DateTime 01/25/2019 177.8 cm Jas Hanley [facility] 01/25/2019 14:47:06 Date Recorded Body height Heart rate Systolic blood pressure Diastolic blood pressure Provider Name and Address Organization Details Last Updated DateTime 02/15/2019 177.8 cm 53 /min 144 mm[Hg] 75 mm[Hg] Ricardo Potts [facility] 02/15/2019 15:05:26 Social History Question Answer Notes LastModified by Organizat ion Details LastModified Time Tobacco Smoking Status [facility] 02/23/2018 10:56:04 What Is Your Level Of Alcohol Consumption? None Information not available 02/23/2018 Auto Related Injury? No Information not available 02/23/2018 What Is Your Level Of Caffeine Consumption? Occasional Information not available 02/23/2018 Are You Currently Employed? Yes Information not available 02/23/2018 Currently No Information not available 02/23/2018 What Type Of Diet Are You Following? REGULAR Information not available 02/23/2018 Live Alone Or With Others? With Others Information not available 02/23/2018 Marital Status Informatio n not available 02/23/2018 What Was The Date Of Your Most Recent Tobacco Screening? 03/09/2018 Information not available 09/07/2018 General Stress Level Low Information not available 02/23/2018 Do You Use Any Illicit Or Recreational Drugs? No Information not available 02/23/2018 Work Related Injury? No Information not available 02/23/2018 Sex: Unknown Functional Status Question Answer Note LastModified by Organization D etails LastModified Time What is your exercise level? Heavy Information not available 02/23/2018 Mental Status None recorded. Family History Relationship Description Onset Age of this Age Resolved Age Notes LastModified by Organization Details LastModified Time Mother Arthritis Not availa ble 02/23/2018 10:55:47 Medical History Condition Response Coronary Artery Disease N Other N Gout N Chronic fatigue syndrome N Hyperthyroidism N Premenstrual syndrome (PMS) N MRSA N Emphysema N Head Trauma/Injury N Irritable bowel syndrome N Depression N COPD N Glaucoma N Lung Disease N Hypothyroidism N Pneumonia N Pacemaker N Obstructive Sleep Apnea N Anxiety Disorder N Muscle, Joint, or Bone Problems N Autoimmune disease N Vision or Eye Problems N Arthritis Y Serious Illness or Injuries N Acid Reflux (GERD) N Cancer N Stroke N Neck Injury N Eating disorder N Back Injury N High Cholesterol N Neurologic Disorder N History of chemotherapy N Liver Disease N Organ Transplant N Rheumatoid Arthritis Y Fibromyalgia N Headaches N Kidney Disease N Allergies/Hayfever N Post traumatic stress disorder (PTSD) N Parkinson's Disease N Migraines N Brain Tumors N Anemia N Multiple Sclerosis N Immune System Disorder N Meningitis N Pancreatic disease N Heart Attack (SC) N Stomach Ulcers N Diabetes N Back pain N Bleeding Disorder N Seizures/Epilepsy N Sjogren's syndrome N Mental Health Concerns N Tuberculosis N AIDS/HIV N Hyperlipidemia N History of radiation therapy N Dementia N Asthma N Physical or sexual abuse N Substance Abuse N Psoriasis N Peripheral Vascular Disease N Reflux/GERD N Vertigo N Sleep Disorder N Hepatitis N Aneurysm N Neuropathy N Heart Disease N Pulmonary Embolism N Hypertension N Osteoporosis N Gynecological HistoryNo gynecological history recorded. Obstetrics History GPAL:G 0 P 0 0 0 0 Immunizations Vaccine Type Date Status Note Provider Nam e and Address Organization Details Recorded Time pneumococcal, unspecified formulation 8 completed Ricardo sanchez [facility] 02/23/2018 10:54:34 Influenza, split virus, trivalent, preservative 8 completed CL[facility] Rojas [facility] 02/23/2018 10:54:34 Influenza, split virus, quadrivalent, preservative 9 completed [facility] [place] [facility] 12/28/2018 16:13:36 Past Encounters Encounter ID Performer Location Encounter Start Date Encounter Closed Date Diagnosis/Indication Diagnosis SNOMED-CT Code Diagnosis ICD10 Code Diagnosis Note [id number] Tiara [place] [address] [place], [place] [address] 02/23/2018 10:42:35 02/23/2018 12:27:39 Myofascial pain 659769920 M79.10 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 [id number] Tiara [place]ys [place] [address] [place], [place] [address] 03/09/2018 15:48:13 03/09/2018 18:49:24 Myofascial pain 504621170 M79.11 Articular disc disorder of temporomandibular joint 61360773 M26.632 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 [id number] Tiara Gu[place]rogladys [place] [address] [place], [place] [address] 12/28/2018 15:14:04 12/28/2018 16:49:05 Articular disc disorder of temporomandibular joint 61439858 M26.632 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 Myofascial pain 47690142 9 M79.11 [id number] Jas [place] [address] [place], [place] [address] 01/09/2019 14:40:21 01/09/2019 16:00:01 Articular disc disorder of temporomandibular joint 20568220 M26.632 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 Myofascial pain 30770358 9 M79.11 [id number] Jas Dayan [place] [address] [place] [address] 01/17/2019 13:11:26 01/17/2019 14:02:35 Articular disc disorder of temporomandibular joint 38518005 M26.632 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 Myofascial pain 03562830 9 M79.11 Health Concerns Section Related Observation LastModified by Organization Detai ls LastModified Time None Recorded Concern Status LastModified by Organization Details LastModified Time None Recorded Advance Directives Directive None Recorded Payers Encounter Date Sequence Insurance Name Policy Number Policy Huang Covered Member ID Huang Member ID Guarantor Name 01/09/2019 1 [place] [employer] Malika C Storlie [id number] 3 Malika Storlie 01/09/2019 2 [facility] [id number] Malika Storlie [id number] Malika Storlie 01/17/2019 1 [place] [employer] Malika C Storlie [id number] Malika Storlie 01/17/2019 2 [facility] [id number] Malika Storlie [id number] Malika Storlie 01/25/2019 1 [facility] [employer] Malika C Storlie [id number] 3 Malika Storlie 01/25/2019 2 [facility] [id number] Malika Storlie [id number] Malika Storlie 02/15/2019 1 [place] [employer] Malika C Storlie [id number] Malika Storlie 02/15/2019 2 [facility] [id number] Malika Storlie [id number] Malika Storlie 02/15/2019 1 [place] [employer] Malika C Storlie [id number] Malika Storlie 02/15/2019 2 [facility] [id number] Malika Storlie [id number] Malika Storlie Notes Date Note Type Note Provider Name and Address Organization Details Recorded Time 01/09/2019 text/html Patient presents today for follow-up. They report jaw symptoms which are {{improved* worsen ed unchanged resol robinson}} since the previous visit. Symptoms and pertinent information along with prior data was reviewed, updated and documented in the patient history of present illness. Patient rates the pain intensity as {{0 1 2 3 4* 5 6 7 8 9 10}} on a scale of 0 to 10. Patient is {{engaged in not engaged in partially engaged in* completed disc ontinued}} active treatment at this time. She states that she is compliant with self care measures and jaw exercises. If patient yawns and or moves her back and forth ,she hears a grinding sound. She is doing TATU, bilateral chewing, massaging side of jaw. {{jaw pain jaw pain and neck pain jaw pain, neck pain and headaches jaw pain and decreased jaw range of motion}}. [place] [facility] 01/09/2019 19:19:21 01/17/2019 text/html She reports a lo t better unless she goes side to side with the jaw. She does exercises 3x/day, 5 minute sessions.She is doing TATU, bilateral chewing, massaging side of jaw. {{jaw pain jaw pain and neck pain jaw pain, neck pain and headaches jaw pain and decreased jaw range of motion}}. Jas Hanley daniel [facility] 01/17/2019 14:47:43 01/25/2019 text/html She reports a lo t better unless she goes side to side with the jaw. She does exercises 3x/day, 4 minute sessions. No complaints, not as bad as it was she states.She is doing TATU, bilateral chewing, massaging side of jaw. {{jaw pain jaw pain and neck pain jaw pain, neck pain and headaches jaw pain and decreased jaw range of motion}}. Jas [place] Choi [facility] 01/25/2019 15:20:52 02/15/2019 text/html She reports a lo t better unless she goes side to side with the jaw. She does exercises 3x/day, 4 minute sessions. No complaints, not as bad as it was she states.She is doing TATU, bilateral chewing, massaging side of jaw.Status same as on 01-25. She isn't bothered eating. She eats everything she wants, maybe too good. She cuts apples. 95% eating better. {{jaw pain jaw pain and neck pain jaw pain, neck pain and headaches jaw pain and decreased jaw range of motion}}. Jas MendenhallCLARE tapia [facility] 02/15/2019 15:04:26 02/15/2019 text/html Patient presents today for follow-up. They report jaw symptoms which are {{improved* worsen ed unchanged resol robinson}} since the previous visit. Reports about 95% improvement. Symptoms and pertinent information along with prior data was reviewed, updated and documented in the patient history of present illness. Patient rates the pain intensity as {{0* 1 2 3 4 5 6 7 8 9 10}} on a scale of 0 to 10. Patient is {{engaged in* not engaged in partially engaged in completed disco ntinued}} active treatment at this time. Patient has had PT and possibly done if she feels well. Some jaw pain when she moves side to side Tiara sanchez [facility] 02/15/2019 15:40:53 OBGyn Episode No OBEpisode recorded.
--- NOTE | 2024-03-19 05:04 | ED.GENADULT ---
HPI - General Adult General Chief complaint: Abdominal Pain Stated complaint: Right side abdominal pain Time Seen by Provider: 03/19/24 05:04 History of Present Illness HPI narrative: Pt reports right sided back and front rib cage area. No reported trauma. No history of kidney stones. Feels better lean forward. Unable to take deep breaths. Pain started last night. Pain rated 9/10 . 68-year-old woman presenting to the emergency department with complaint of right-sided abdominal pain. She says in the back area she thinks maybe into her lower ribcage on the right. Feels better to lean forward. History evening onset of sharp pains in the right flank area wrapping around now to the front abdomen on the right side. No dysuria frequency or urgency. Denies constipation. No fever. No nausea. No cough. Hurts to take a deeper breath though. Otherwise not short of breath. No new leg pain or swelling. Notes a generally high pain tolerance. Related Data Home Medications ?Medication ?Instructions ?Recorded ?Confirmed calcium carbonate 600 mg PO DAILY 11/26/21 11/30/21 multivitamin 1 tab PO QDAY 11/26/21 11/30/21 meloxicam 15 mg tablet 15 mg PO QDAY 11/30/21 11/30/21 Previous Rx's ?Medication ?Instructions ?Recorded amoxicillin 500 mg capsule 2,000 mg (4 x 500 mg) PO ONCE #4 04/04/23 caps Allergies Allergy/AdvReac Type Severity Reaction Status Date / Time hydrocodone Allergy itching Verified 11/30/21 14:52 morphine Allergy itching Verified 11/30/21 14:52 Review of Systems Status of ROS: Reports: 6 or more systems reviewed and unremarkable except as noted in History and below [facility] Medical History Osteoarthritis ?M19.90 - Unspecified osteoarthritis, unspecified site (ICD-10) History of malignant neoplasm of endometrium ?Z85.42 - Personal history of malignant neoplasm of other parts of uterus (ICD-10) History of cystocele ?Z87.448 - Personal history of other diseases of urinary system (ICD-10) Due for screening ?Z13.9 - Encounter for screening, unspecified (ICD-10) Surgical History S/P total right hip arthroplasty ?Z96.641 - Presence of right artificial hip joint (ICD-10) History of repair of ACL ?Z98.890 - Other specified postprocedural states (ICD-10) History of tubal ligation ?Z98.51 - Tubal ligation status (ICD-10) History of total knee replacement ?Z96.659 - Presence of unspecified artificial knee joint (ICD-10) History of total hip replacement (07/28/12) ?Z96.649 - Presence of unspecified artificial hip joint (ICD-10) History of tonsillectomy and adenoidectomy ?Z90.89 - Acquired absence of other organs (ICD-10) History of hysterectomy ?Z90.710 - Acquired absence of both cervix and uterus (ICD-10) History of dilation and curettage ?Z98.890 - Other specified postprocedural states (ICD-10) History of bunionectomy of both great toes ?Z98.890 - Other specified postprocedural states (ICD-10) History of Achilles tendon repair ?Z98.890 - Other specified postprocedural states (ICD-10) Social History Smoking Status: Never smoker Do you use any of these nicotine containing products: None Second hand tobacco smoke exposure: No Exam Narrative: Exam Narrative: Pleasant. Seems uncomfortable in transition. Breathing easily. Lungs are clear. More uncomfortable appearing when leans forward. Lungs are clear. A little sore to percussion in the right flank area and than in the right mid abdomen. Not really tender at McBurney's nor is she tender in the right upper quadrant nor demonstrating Duval's. No peritoneal signs. Extremities are well perfused. She is without edema. Heart in regular rate and rhythm. Const: Vital Signs, click to edit/add: Vital Signs - 24 hr 03/19/24 04:45 Temperature 97.6 F Pulse Rate [Left P ulse Oximeter] 83 Respiratory Rate 16 Blood Pressure [Ri ght Upper Arm] 132/77 Pulse Oximetry 97 Oxygen Delivery Me thod Room Air Documenting provider has reviewed patient's vital signs: yes Course Vital Signs Vital signs: Initial Vital Signs Temperature 97.6 F 03/19/24 04:45 Temperature Source Temporal Artery Scan 03/19/24 04:45 Pulse Rate 83 03/19/24 04:45 Pulse Rhythm Regular 03/19/24 04:45 Respiratory Rate 16 03/19/24 04:45 Blood Pressure 132/77 03/19/24 04:45 Blood Pressure Mean 95 03/19/24 04:45 Blood Pressure Position Sitting 03/19/24 04:45 Pulse Oximetry 97 03/19/24 04:45 Oxygen Delivery Method Room Air 03/19/24 04:45 Vital Signs Temperature 97.6 F 03/19/24 04:45 Pulse Rate 83 03/19/24 04:45 Respiratory Rate 16 03/19/24 04:45 Blood Pressure 132/77 03/19/24 04:45 Pulse Oximetry 97 03/19/24 04:45 Oxygen Delivery Method Room Air 03/19/24 04:45 Temperature 97.6 F 03/19/24 04:45 Pulse Rate 83 03/19/24 04:45 Respiratory Rate 16 03/19/24 04:45 Blood Pressure 132/77 03/19/24 04:45 Pulse Oximetry 97 03/19/24 04:45 Oxygen Delivery Method Room Air 03/19/24 04:45 Medications Administered Medications: Discontinued Medications Generic Name Dose Route Start Last Admin Trade Name Freq PRN Reason Stop Dose Admin Sodium Chloride 500 mls @ 500 mls/hr 03/19/24 05:15 03/19/24 06:26 0.9 % Sodium Chloride 500 Ml IV 03/19/24 06:14 Infused .Q1H ONE Infusion Medical Decision Making MDM Narrative Medical decision making narrative: May have ureteral stone and colic. The progression of this pain from the back and then in the line that she draws down into her right mid abdomen might be consistent with this. I do not think this is radicular from her back. She may have a low-lying pneumonia. Mesenteric adenitis in differential as well. Possible urinary tract infection. This could be biliary disease/colic as well. Constipation? She does not want anything for pain or nausea at this time. I do independently review CT abdomen and pelvis. I can appreciate vascular calcifications/atherosclerosis and some phleboliths. Not clearly with hydronephrosis or ureteral stone. Notable colonic stool. Labs are wholly reassuring. Radiology over-read below INDICATION: . 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 COMPARISON: None. FINDINGS: Lower chest: Right basilar atelectasis and/or scarring. Liver: Normal in size and attenuation. No suspicious masses. Gallbladder and bile ducts: No stones or inflammation. No biliary dilatation. Pancreas: Unremarkable. No mass or inflammation. Spleen: Normal in size. No masses. Adrenal glands: Normal in size. No nodules. 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 No renal calculi no hydronephrosis is seen. GI tract: Diverticulosis abundant stool in the colon bowel appears unremarkable normal appendix. Vasculature: Abdominal aorta is normal in caliber. Lymph nodes: No lymphadenopathy. Peritoneum/Abdominal Wall: Unremarkable. No sign of mass or infiltration. No free air or significant free fluid. Pelvis: Unremarkable. No pelvic masses. Bones: Right hip arthroplasty streak artifact limits visualization. Impression: 1. No acute findings in the abdomen or pelvis. No renal calculi or hydronephrosis. Discussed these findings with Ms. Mandujano. Symptoms worse when leaning or sitting forward might be consistent with stool and gas. Atelectasis not unexpected with presentation here today. See patient discharge plan for further discussion It does appear that you are constipated to some degree. This certainly could be contributing to the symptoms you presented with here today. I would recommend, since you have it, taking MiraLax diluting in at least 8 oz of liquid and dosing 2-3 times daily adjusting to stool consistency over the next 1-2 weeks. Longer-term consider fiber supplementation like Benefiber for other benefit. If you are experiencing hard stool, consider placing an enema and repeat in an hour if no good result. Further bowel cleanout could be accomplished but drinking a bottle of magnesium citrate and repeating next day if no significant result. Can also take senna product temporarily. And as you said, hydrate. Don't forget vegetables and fruit. Return for marked increase in persistent pain, fever, repeated vomiting. Medical Records Medical records reviewed: Yes I reviewed the patient's medical records Lab Data Lab results reviewed: Yes I reviewed the patient's lab results Labs: Lab Results 03/19/24 03/19/24 03/19/24 Range/Units 05:27 06:30 06:32 WBC 8.96 (4.50-11.00) K/uL RBC 4.64 (4.00-5.20) m/uL Hgb 13.9 (12.0-16.0) gm/dL Hct 42.1 (33.0-51.0) % MCV 91 (80-100) fL MCH 30 (26-34) pg MCHC 33 (32-36) gm/dL RDW Coeff of [place] 12.4 (11.5-15.5) % Plt Count 262 (140-440) K/uL Neut % (Auto) 87.8 H (42.0-72.0) % Lymph % (Auto) 5.2 L (20-44) % [place] % (Auto) 6.4 (0.0-11.0) % Eos % (Auto) 0.3 (0.0-7.0) % Baso % (Auto) 0.2 (0.0-3.0) % Neut # (Auto) 7.90 H (1.7-7.0) K/uL Lymph # (Auto) 0.50 L (0.90-2.90) K/uL [place] # (Auto) 0.60 (0.00-0.90) K/UL Eos # (Auto) 0.03 (0.00-0.50) K/uL Baso # (Auto) 0.02 (0.00-0.30) K/uL Abs Immat Gran (auto) 0.01 (0.00-0.30) K/uL Imm/Tot Granulo (auto) 0.1 % Sodium 138 (135-149) mmol/L Potassium 4.5 (3.6-5.1) mmol/L Chloride 105 (96-114) mmol/L Carbon Dioxide 26 (20-32) mmol/L Anion Gap 7 (7-15) mEq/L BUN 21 (7-30) mg/dL Creatinine 0.6 (0.5-1.5) mg/dL Estimated Creat Clear 54.71 Estimated GFR 97 ml/min Glucose 127 H (60-115) mg/dL Calcium 9.4 (8.4-10.6) mg/dL Total Bilirubin 0.9 (0.1-1.5) mg/dL Direct Bilirubin 0.3 (0.0-0.5) mg/dL AST 23 (12-35) U/L ALT 22 (4-35) U/L Alkaline Phosphatase 85 (40-150) U/L C-Reactive Protein 4.6 H (0.5-1.0) mg/dL Total Protein 7.6 (6.0-8.3) g/dL Albumin 4.5 (3.3-5.0) g/dL Urine Color Yellow (Yellow) Urine Appearance Clear (Clear) Urine pH 6.0 (5.0-8.5) Ur Specific [place] 1.015 (1.000-1.030) Urine Protein Negative (Negative) Urine Glucose (UA) Negative (Negative) Urine Ketones Negative (Negative) Urine Blood 1+ A (Negative) Urine Nitrite Negative (Negative) Urine Bilirubin Negative (Negative) Urine Urobilinogen 0.2 (0.2-1.0) Ur Leukocyte Esterase Trace A (Negative) Urine RBC 0-2 (0-2) Urine WBC 0-2 (0-5) Ur Squamous Epith Cells Few (None-Few) Urine Bacteria None (None) Lab Acknowledgement Test Added Discharge Plan Discharge Clinical Impression: Constipation, Abdominal pain Patient Disposition: Home w/ Parent or Adult Condition: Stable Additional Instructions: It does appear that you are constipated to some degree. This certainly could be contributing to the symptoms you presented with here today. I would recommend, since you have it, taking MiraLax diluting in at least 8 oz of liquid and dosing 2-3 times daily adjusting to stool consistency over the next 1-2 weeks. Longer-term consider fiber supplementation like Benefiber for other benefit. If you are experiencing hard stool, consider placing an enema and repeat in an hour if no good result. Further bowel cleanout could be accomplished but drinking a bottle of magnesium citrate and repeating next day if no significant result. Can also take senna product temporarily. And as you said, hydrate. Don't forget vegetables and fruit. Return for marked increase in persistent pain, fever, repeated vomiting. Prescriptions: No Action calcium carbonate 600 mg calcium (1,500 mg) tablet 600 mg PO DAILY multivitamin Tablet 1 tab PO QDAY meloxicam 15 mg tablet 15 mg PO QDAY amoxicillin 500 mg capsule 2,000 mg PO ONCE Qty: 4 3RF Rx Instructions: Take 4 capsules (2000mg) 1 hour prior to dental appointment. Follow Up/Referrals: Detert,Rachael L, DO [Primary Care Provider] - Stand Alone Forms: [employer] Info Instructions
--- NOTE | 2024-03-19 05:15 | CRLHL7_ITS ---
For Patients: As a result of the Century Cures Act, medical imaging exams and procedure reports are released immediately into your electronic medical record. You may view this report before your referring provider. If you have questions, please contact your health care provider. INDICATION: . 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 COMPARISON: None. FINDINGS: Lower chest: Right basilar atelectasis and/or scarring. Liver: Normal in size and attenuation. No suspicious masses. Gallbladder and bile ducts: No stones or inflammation. No biliary dilatation. Pancreas: Unremarkable. No mass or inflammation. Spleen: Normal in size. No masses. Adrenal glands: Normal in size. No nodules. 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 No renal calculi no hydronephrosis is seen. GI tract: Diverticulosis abundant stool in the colon bowel appears unremarkable normal appendix. Vasculature: Abdominal aorta is normal in caliber. Lymph nodes: No lymphadenopathy. Peritoneum/Abdominal Wall: Unremarkable. No sign of mass or infiltration. No free air or significant free fluid. Pelvis: Unremarkable. No pelvic masses. Bones: Right hip arthroplasty streak artifact limits visualization. Impression: 1. No acute findings in the abdomen or pelvis. No renal calculi or hydronephrosis. Please note that all CT scans at this facility use dose modulation, iterative reconstruction, and/or weight-based dosing when appropriate to reduce radiation dose to as low as reasonably achievable. Dictated by Merly Weinberg MD @ 03/19/2024 6:29:44 AM (Electronically Signed)
[2024-03-19 05:35] LABS: Basophils Absolute Auto 0.02 K/uL (0.00-0.30); Basophils Percent Auto 0.2 % (0.0-3.0); Eosinophils Absolute Auto 0.03 K/uL (0.00-0.50); Eosinophils Percent Auto 0.3 % (0.0-7.0); Hematocrit 42.1 % (33.0-51.0); Hemoglobin* 13.9 gm/dL (12.0-16.0); Immature Granulocytes Abs Auto 0.01 K/uL (0.00-0.30); Immature Granulocytes Pct Auto 0.1 %; Lymphocytes Percent Auto 5.2 % (20-44); Mean Corpuscular HGB Conc 33 gm/dL (32-36); Mean Corpuscular Hemoglobin 30 pg (26-34); Mean Corpuscular Volume 91 fL (80-100); Monocytes Percent Auto 6.4 % (0.0-11.0); Neutrophils Percent Auto 87.8 % (42.0-72.0); Platelet Count* 262 K/uL (140-440); RDW Coefficient of Variation % 12.4 % (11.5-15.5); Red Blood Count 4.64 m/uL (4.00-5.20); White Blood Count* 8.96 K/uL (4.50-11.00)
--- OUTSIDE RECORDS SUMMARY | 2024-03-19 05:36 | XMS_ITS | Clinical Summary ---
Author Organization [facility] Address [place], [place] [address] Care Team Providers Care Cad Cam Programmer Name Role Phone Rachael Antunez DO Primary [...] (BMI 30-39.9) 08/09/20112013 Endometrial cancer 05/07/2011 0 residential (current) use of anticoagulants 06/09/2009 05/07/2011 Overview [...] Type Department Care Team Description 03/09/[address] [address] Rachael Antunez DO Letter (Patient wondering if she can use weight loss injections.) 02/29/[address] [address] Rachael Antunez, Form 01/30/2024 7:45 AM PAPER CONE MAKER Office Visit [facility] [address] [place] [address] Racahel Antunez DO Medicare ANNUAL (subsequent) Visit (68 yr/) 01/30/2024 Travel 01/25/2024 Travel 01/23/2024 7:20 AM PAPER CONE MAKER Ancillary Procedure [facility] [address] [place] [address] 01/23/2024 Travel 01/20/2024 Travel 01/17/2024 2:15 PM PAPER CONE MAKER Office Visit [facility] [address] [place] [address] Yousif Lamar DPM Follow Up (Left foot pain, review EMG results ) 01/17/2024 Travel 01/10/2024 10:30 AM PAPER CONE MAKER Office Visit [facility] [address] [place] [address] Harsha Plascencia, Testing (EMG left lower extremity) [...] on file Legal Sex Female 5:21 AM PAPER CONE MAKER Gender Identity Not on file Sexual Orientation [...] Comments Blood Pressure 150/80 01/30/2024 7:48 AM PAPER CONE MAKER Pulse 55 01/30/2024 7:48 AM PAPER CONE MAKER Temperature 36.4 C (97.6 F) 01/30/2024 7:48 AM PAPER CONE MAKER Respiratory Rate 16 09/18/2015 7:08 AM CDT Oxygen Saturation 97% 01/30/2024 7:48 AM PAPER CONE MAKER Inhaled Oxygen Concentration - - Weight 85 kg (187 lb 6.4 oz) 01/30/2024 7:48 AM PAPER CONE MAKER Height 173.4 cm (5' 8.27) 01/30/2024 7:48 AM CS T Body Mass Index 28.27 01/30/2024 7:48 AM PAPER CONE MAKER Plan of Treatment Health Maintenance Due Date [...] history exists Medical Devices Implanted Type Area Station Inspector Device Identifier Shelf Expiration Date Model / Serial / Lot Bone Cement Implanted:Qty: 2 on 09/15/2015 by Aguila Hernandez MD at [facility] Right: Knee [employer] 01/14/2018 / / [id number] Stem Ext Implanted:Qty: 1 on 09/15/2015 by Aguila Hernandez MD at [facility] Right: Knee [employer] 01/14/2019 / / [id number] Tibial Tray Implanted:Qty: 1 on 09/15/2015 by Aguila Hernandez MD at [facility] Right: Knee [employer] 11/15/2019 / / [id number] Patella Implanted:Qty: 1 on 09/15/2015 by Aguila Hernandez MD at [facility] Right: Knee [employer] 06/14/2020 / / [id number] Bone Cement Implanted:Qty: 2 on 09/15/2015 by Aguila Hernandez MD at [facility] Right: Knee [employer] 08/14/2017 / / [id number] Tibial Insert Implanted:Qty: 1 on 09/15/2015 by Aguila Hernandez MD at [facility] Right: Knee [employer] 08/15/2019 / / [id number] Femoral Aug. Block & Screw Implanted:Qty: 1 on 09/15/2015 by Aguila Hernandez MD at [facility] Right: Knee [employer] 05/15/2016 / / [id number] Stem Ext Implanted:Qty: 1 on 09/15/2015 by Aguila Hernandez MD at [facility] Right: Knee [employer] 07/15/2020 / / [id number] Femoral Component Implanted:Qty: 1 on 09/15/2015 by Aguila Hernandez MD at [facility] Right: Knee [employer] 12/16/2015 / / [id number] Stem Ext Implanted:Qty: 1 on 09/15/2015 by Aguila Hernandez MD at [facility] Right: Knee [employer] 08/14/2018 / / [id number] Femoral Aug Block & Screw Implanted:Qty: 1 on 09/15/2015 by Aguila Hernandez MD at [facility] Right: Knee [employer] 11/14/2018 / / [id number] Fem Aug Block & Screw Implanted:Qty: 1 on 09/15/2015 by Aguila Hernandez MD at [facility] Right: Knee [employer] 04/14/2020 / / [id number] Procedures Procedure Name Priority Date/Time Associated Diagnosis Comments LIPID PANEL W REFLEX MEASURED LDL Routine 01/30/2024 8:47 AM PAPER CONE MAKER Screening cholesterol level BASIC METABOLIC PANEL Routine 01/30/2024 8:47 AM PAPER CONE MAKER Screening for diabetes mellitus Hyperkalemia XR MAMMO ALESSIO BILAT SCREEN Routine 01/23/2024 7:37 AM PAPER CONE MAKER Visit for screening mammogram EMG Routine 01/10/2024 10:26 AM PAPER CONE MAKER Numbness of left foot SDNA-FIT EXTERNAL (COLOGUARD) Routine 07/20/2023 7:10 AM CDT Screening for colon cancer XR DXA BONE DENSITY 2 SITES AXIAL Routine 01/07/2020 10:49 AM PAPER CONE MAKER Menopause ANTI HCV Routine 01/06/2015 10:28 AM PAPER CONE MAKER Need for hepatitis C screening test from Last 3 Months or Most Recently Relevant to Health Maintenance Results * (ABNORMAL) LIPID PANEL W REFLEX MEASURED LDL (01/30/2024 8:47 AM PAPER CONE MAKER) Pathologist [facility] CHOLESTEROL, TOTAL 210(H) <200 mg/dL [facility] HDL CHOLESTEROL 66 > OR = 50 mg/dL [facility] TRIGLYCERIDES 78 <150 mg/dL [facility] LDL-CHOLESTEROL 127(H) mg/dL (calc) [facility] Comment: Reference range: <100 Desirable range <100 mg/dL for primary prevention; <70 mg/dL for patients with CHD or diabetic patients with > or = 2 CHD risk factors. LDL-C is now calculated using the Serjio-Asa calculation, which is a validated novel method providing better accuracy than the Friedewald equation in the estimation of LDL-C. Serjio SS et al. BRUNA. 2013;310(19): 4298-8344 (http://education.[employer]/faq/FGA308) CHOL/HDLC RATIO 3.2 <5.0 (calc) [facility] NON HDL CHOLESTEROL 144(H) <130 mg/dL (calc) [facility] Comment: For patients with diabetes plus 1 major ASCVD risk factor, treating to a non-HDL-C goal of <100 mg/dL (LDL-C of <70 mg/dL) is considered a therapeutic option. Blood BLOOD SPECIMEN / Unknown 01/30/2024 8:47 AM PAPER CONE MAKER 01/30/2024 8:48 AM PAPER CONE MAKER us Rachael Nealt DO CHEMISTRY Final Resul t [employer] [facility] [address] [place] [address], [facility] [address] [place] [address] * BASIC METABOLIC PANEL (01/30/2024 8:47 AM PAPER CONE MAKER) [facility] GLUCOSE 89 65 - 99 mg/dL [facility] Comment: Fasting reference interval UREA [...] CALCIUM 9.3 8.6 - 10.4 mg/dL [facility] Blood BLOOD SPECIMEN / Unknown 01/30/2024 8:47 AM PAPER CONE MAKER 01/30/2024 8:48 AM PAPER CONE MAKER us Rachael Nealt DO CHEMISTRY Final Resul t [employer] [facility] [address] [place] [address], [place] [phone] [facility] [address] [place] [address] * XR MAMMO ALESSIO BILAT SCREEN (01/23/2024 7:37 AM PAPER CONE MAKER) Anatomical Region Laterality Modality BREASTS, Breast Left, Breast Right Bilateral Mammography Impressions 01/23/2024 2:16 PM PAPER CONE MAKER There is no radiographic evidence for malignancy. Recommend annual mammograms. MAMMOGRAM ASSESSMENT: ACR 1 Negative PATIENTS: You will also receive a letter with your examination results in an easy to read format. If you have questions about your results, please contact your referring provider. Narrative 01/23/2024 2:16 PM PAPER CONE MAKER For Patients: As a result of the Cures Act, medical imaging exams and procedure reports are released immediately into your electronic medical record. You may view this report before your referring provider. If you have questions, please contact your health care provider. XR MAMMO ALESSIO BILAT SCREEN [[id number]] CLINICAL HISTORY: This is an asymptomatic 68 y.o. patient. INDICATION FOR EXAM: Mammogram Screening. TECHNIQUE: CC & MLO views were obtained. This study was evaluated with the assistance of Computer-Aided Detection. Breast Tomosynthesis was used in interpretation. COMPARISON FILM: Yes 01/20/23 [facility] 01/14/22 [employer] FINDINGS: There are scattered areas of fibroglandular density. There are no dominant masses, suspicious micro calcifications or areas of architectural distortion. Rachael Nealt DO MAMMO Final Resul t * EMG (01/10/2024 10:26 AM PAPER CONE MAKER) Yousif Lamar DPM NEUROLOGY ORD Final Res ult * SDNA-FIT EXTERNAL (COLOGUARD) (07/20/2023 7:10 AM CDT) NONINV COLON CA DNA+OCC BLD SCRN STL-IMP Negative Negative 08/04/2023 4:49 PM CDT [facility] (CLIA #:[id number]) Comment: NEGATIVE TEST RESULT. A negative Cologuard [...] (Christin Sandy al, N Engl J Med 2014;370(14):1854-5232) The normal value (reference range) for this assay is negative. COLOGUARD RE-SCREENING RECOMMENDATION: Periodic colorectal cancer screening is an important part of preventive healthcare for asymptomatic individuals at average risk for colorectal cancer. Following a negative Cologuard result, the [place] [employer] and U.S. Multi-Society Task Force screening guidelines recommend a Cologuard re-screening interval of 3 years. References: [place] [employer] Guideline for Colorectal Cancer Screening: https://www.cancer.org/cancer/lvhqp-nisdsq-kiypwt/ogvqakusm-ewaxhhbov-ayhegjb/ac s-rec ommendations.html.; Berry GREENE, Nam BEST, Riley GómezK, Colorectal Cancer Screening: Recommendations for Physicians and Patients from the U.S. Multi-Society Task Force on Colorectal Cancer Screening , Am J Gastroenterology 2017; 112:9811-3499. TEST DESCRIPTION: Composite algorithmic analysis of stool [...] colonoscopy. (Christin Burks, N Engl J Med 2014;370(14):2424-8123.) Cologuard may produce a false negative or false positive result (no colorectal cancer or precancerous polyp present at colonoscopy follow up). A negative Cologuard test result does not guarantee the absence of CRC or advanced adenoma (pre-cancer). The current Cologuard screening interval is every 3 years. ([place] [employer] and U.S. Multi-Society Task Force). Cologuard performance data in a 10,000 patient pivotal study using colonoscopy as the reference method can be accessed at the following location: www.[employer]/results. Additional description of the Cologuard test process, warnings and precautions can be found at www.cologuard.com. Stool specimen (specimen) (Rectum) 07/20/2023 7:10 AM CDT 07/21/2023 1:29 PM CDT Rachael Nealt DO URINE Final Resul t [facility] (CLIA #:[id number]) [address] [place] [address], * XR DXA BONE DENSITY 2 SITES AXIAL [[id number]] (01/07/2020 10:49 AM PAPER CONE MAKER) Anatomical Region Laterality Modality Spine, HIPS, HIPL, HIPR Other Narrative 01/22/2020 4:37 PM PAPER CONE MAKER Please see scanned document for results of this study. Rachael Nealt DO DEXA Final Resul t * ANTI HCV [[id number]] (01/06/2015 10:28 AM PAPER CONE MAKER) HEPATITIS C ANTIBODY Non-Reacti ve Non-Reacti ve 01/06/2015 4:50 PM PAPER CONE MAKER [facility] Blood specimen (specimen) BLOOD SPECIMEN / Unknown Venipuncture / Unknown 01/06/2015 10:28 AM PAPER CONE MAKER 01/06/2015 10:28 AM PAPER CONE MAKER Narrative [facility] - 01/06/2015 4:50 PM PAPER CONE MAKER Antibodies to HCV not detected; does not exclude the possibility of exposure to HCV. us Rachael Eva Antunez DO SEND OUTS Final Resul t [facility] [address] [place] [address], [place] from Last 3 Months or Most Recently Relevant to Health Maintenance Insurance [facility] [employer] MEDICARE ADVANTAGE Advance Directives * [...] 11:24 AM 05/07/2011 5:59 PM Care Teams Cad Cam Programmer Relationship Specialty Start Date End Date Rachael Antunez DO [address] [place] [address] PCP - General Family Practice 10/15/11
[2024-03-19 05:54] LABS: Chloride* 105 mmol/L (96-114); Potassium* 4.5 mmol/L (3.6-5.1); Sodium* 138 mmol/L (135-149)
[2024-03-19] MEDS: 0.9 % SODIUM CHLORIDE 500 ML 500 ML IV (05:55)
[2024-03-19 05:57] LABS: Anion Gap 7 mEq/L (7-15); Blood Urea Nitrogen* 21 mg/dL (7-30); Carbon Dioxide* 26 mmol/L (20-32); Creatinine* 0.6 mg/dL (0.5-1.5); Est. Creatinine Clearance* 54.71; Estimated Glomerular Filt Rate 97 ml/min
[2024-03-19 05:58] LABS: Calcium* 9.4 mg/dL (8.4-10.6); Glucose* 127 mg/dL (60-115)
[2024-03-19 06:00] LABS: C Reactive Protein* 4.6 mg/dL (0.5-1.0)
[2024-03-19 06:01] LABS: Slide Review Reflex No
[2024-03-19 06:38] LABS: Appearance Urine Clear (Clear); Bilirubin Urine Negative (Negative); Blood Urine 1+ (Negative); Color Urine Yellow (Yellow); Glucose Urine Negative (Negative); Ketones Urine Negative (Negative); Leukocyte Esterase Urine Trace (Negative); Nitrite Urine Negative (Negative); Protein Urine Negative (Negative); Specific Gravity Urine 1.015 (1.000-1.030); Urobilinogen Urine 0.2 (0.2-1.0)
[2024-03-19 06:48] LABS: RBC Urine 0-2 (0-2); Squamous Epithelial Cell Urine Few (None-Few); WBC Urine 0-2 (0-5)
[2024-03-19 07:17] LABS: Albumin* 4.5 g/dL (3.3-5.0)
[2024-03-19 07:20] LABS: Alanine Aminotransferase* 22 U/L (4-35); Alkaline Phosphatase* 85 U/L (40-150); Aspartate Amino Transferase* 23 U/L (12-35); Bilirubin Direct* 0.3 mg/dL (0.0-0.5); Bilirubin Total* 0.9 mg/dL (0.1-1.5); Total Protein* 7.6 g/dL (6.0-8.3)
== END 2024-03-19 07:56 | disposition home or self-care (01) ==
PROVIDERS: Emergency Provider Family Medicine; PCP Family Medicine
DX: R10.9 Unspecified abdominal pain (principal); K59.00 Constipation, unspecified
CPT/HCPCS: 36415; 74176; 80048; 80076; 81001; 85025; 86140; 87086; 99283; 99284; J7030